=== PATIENT | female | born 1960 | race Caucasian/White ===

== ENCOUNTER 2021-05-08 11:09 | Emergency (ER) | payer MEDICARE, OTHER | END 2021-05-08 15:40 | disposition home or self-care (01) | LOC: FER 11:09 | DX: S83.92XA Sprain of unspecified site of left knee, initial encounter (principal); E11.638 Type 2 diabetes mellitus with other oral complications; I10 Essential (primary) hypertension; Z87.09 Personal history of other diseases of the respiratory system; X50.1XXA Overexertion from prolonged static or awkward postures, initial encounter; Y92.89 Other specified places as the place of occurrence of the external cause | CPT/HCPCS: 73564 ==

== ENCOUNTER 2021-07-10 12:58 | Emergency (ER) | payer MEDICARE, OTHER ==
[~2021-07-10] VITALS: Ht 165.1 cm; Wt 95.3 kg
[2021-07-10 13:46] LABS: BASOPHIL 0.1 % (0-2); EOSINOPHIL 0.1 % (0-5); HCT 46.1 % (37.0-47.0); HGB 14.1 g/dl (12.5-16.0); LYMPHOCYTE 15.7 % (15-48); MCHC 30.6 g/dL (32.0-36.0); MCV 81.9 fL (78.0-100.0); MONOCYTE 7.3 % (0-12); MPV 10.8 fL (6.0-9.5); NEUTROPHIL 76.5 % (41-80); NRBC 0; PLT 362 K/uL (150-400); RBC 5.63 M/uL (4.20-5.40); RDW 15.8 % (11.5-14.0); WBC 14.1 K/uL (4.0-10.5)
[2021-07-10 14:01] LABS: INR 1.01 (0.9-1.2); PROTHROMBIN TIME 12.7 SECONDS (11.8-13.4); PTT 25.2 SECONDS (24.4-34.7)
[2021-07-10 14:08] LABS: ALBUMIN 3.7 g/dL (3.4-5.0); BILIRUBIN - TOTAL 0.4 mg/dL (0.2-1.0); CREATININE 0.6 mg/dL (0.51-0.95); GLOBULIN (CALCULATION) 4.1 g/dL; POTASSIUM 4.2 mmol/L (3.5-5.1); TOTAL PROTEIN 7.8 g/dL (6.4-8.2)
[2021-07-10 15:12] LABS: AMPHETAMINES NEGATIVE (NEGATIVE); BARBITURATES NEGATIVE (NEGATIVE); ECSTASY (MDMA) NEGATIVE (NEGATIVE); MARIJUANA (THC) NEGATIVE (NEGATIVE); METHADONE NEGATIVE (NEGATIVE); OPIATES NEGATIVE (NEGATIVE); OXYCODONE NEGATIVE (NEGATIVE)
[2021-07-10 15:13] LABS: BILIRUBIN NEGATIVE (NEGATIVE); BLOOD NEGATIVE Ery/uL (NEGATIVE); CLARITY CLEAR (CLEAR); COLOR YELLOW (YELLOW); GLUCOSE (U) 3+ mg/dL (NORMAL); LEUKOCYTES NEGATIVE Leu/uL (NEGATIVE); NITRITE NEGATIVE (NEGATIVE); PROTEIN NEGATIVE (NEGATIVE); UROBILINOGEN 0.2 mg/dL (0.2-1.0); pH 5.5 (5.0-9.0)
[2021-07-10] MEDS ORDERED: ANTIVERT25 MG PO (16:46)
== END 2021-07-10 17:15 | disposition home or self-care (01) ==
LOC: FER 12:58
PROVIDERS: Emergency Medicine
DX: R42 Dizziness and giddiness (principal); I10 Essential (primary) hypertension; Z88.0 Allergy status to penicillin
CPT/HCPCS: 36415; 70450; 80053; 80305; 81003; 84484; 85025; 85379; 85610; 85730; 93005; J2405; J7030

== ENCOUNTER 2021-07-11 21:04 | Emergency (ER) | payer MEDICARE, OTHER ==
[~2021-07-11 21:04] MED LIST: ANTIVERT25 MG PO
[2021-07-11 21:20] LABS: BASOPHIL 0.2 % (0-2); EOSINOPHIL 0.1 % (0-5); HGB 13.1 g/dl (12.5-16.0); LYMPHOCYTE 32.5 % (15-48); MCH 25.4 pg (25.0-31.0); MCHC 31.2 g/dL (32.0-36.0); MCV 81.6 fL (78.0-100.0); MONOCYTE 6.9 % (0-12); MPV 10.4 fL (6.0-9.5); NRBC 0; PLT 320 K/uL (150-400); RBC 5.15 M/uL (4.20-5.40); RDW 15.4 % (11.5-14.0); WBC 11.5 K/uL (4.0-10.5)
[2021-07-11 21:29] LABS: INR 0.96 (0.9-1.2); PROTHROMBIN TIME 12.2 SECONDS (11.8-13.4); PTT 25.5 SECONDS (24.4-34.7)
[2021-07-11 21:38] LABS: ALBUMIN 3.6 g/dL (3.4-5.0); BILIRUBIN - TOTAL 0.3 mg/dL (0.2-1.0); CREATININE 0.59 mg/dL (0.51-0.95); POTASSIUM 3.7 mmol/L (3.5-5.1); TOTAL PROTEIN 7.6 g/dL (6.4-8.2)
[2021-07-11 21:45] LABS: CKMB 0.9 ng/mL (0.0-3.6)
== END 2021-07-12 01:05 | disposition other institution (70) ==
LOC: FER 21:04
PROVIDERS: Emergency Medicine
DX: I63.9 Cerebral infarction, unspecified (principal); R47.1 Dysarthria and anarthria; R29.810 Facial weakness; R29.704 NIHSS score 4; I10 Essential (primary) hypertension; E11.9 Type 2 diabetes mellitus without complications; J45.909 Unspecified asthma, uncomplicated; F17.200 Nicotine dependence, unspecified, uncomplicated; Z88.0 Allergy status to penicillin
CPT/HCPCS: 36415; 70450; 71045; 80053; 80061; 82550; 82553; 84484; 85025; 85610; 85730; 93005; J7030